=== PATIENT | male | born 1995 ===

== ENCOUNTER 2020-11-28 13:02 | Inpatient (IN) ==
[2020-11-28 13:58] LABS: ABS Lymphocytes 2.3 10^3/ul (1.0-4.8); ABS Monocytes 1.3 10^3/ul (0-0.8); ABS Neutrophils 11.9 10^3/ul (1.5-7.7); Eosinophil % 0.2 %; Hematocrit 46 % (42-52); Hemoglobin 15.7 g/dL (14.0-18.0); Lymphocyte % 14.6 %; Mean Corpuscular HGB Conc 34 g/dL (31-36); Mean Corpuscular Hemoglobin 30 pg (27-31); Mean Corpuscular Volume 88 fL (80-94); Mean Platelet Volume 7.7 fL (7.4-10.4); Platelet Count 349 10^3/uL (150-450); Red Blood Count 5.24 10^6 /uL (4.18-5.48); Red Cell Distribution Width 14 % (10-15); White Blood Count 15.5 10^3/uL (3.5-10.8)
[2020-11-28 14:14] LABS: ALT 21 U/L (7-52); AST 22 U/L (13-39); Albumin 4.7 g/dL (3.2-5.2); Albumin/Globulin Ratio 1.5 (1-3); Alkaline Phosphatase 76 U/L (35-149); Anion Gap 13 mmol/L (2-11); Blood Urea Nitrogen 9 mg/dL (6-24); CO2 Carbon Dioxide 20 mmol/L (22-32); Calcium 9.9 mg/dL (8.6-10.3); Chloride 106 mmol/L (101-111); EGFR African American 83.6 (>60); EGFR Non-African American 69.1 (>60); Globulin 3.2 g/dL (2-4); Glucose 114 mg/dL (70-100); Potassium 3.7 mmol/L (3.5-5.0); Sodium 139 mmol/L (135-145); Total Protein 7.9 g/dL (6.4-8.9)
[2020-11-28 15:00] LABS: Acetaminophen < 15 mcg/mL; Alcohol, S < 13 mg/dL (<13); Salicylate < 2.50 mg/dL (<30)
[2020-11-28 16:07] LABS: Urine Appearance Clear; Urine Bilirubin Negative (Negative); Urine Blood Negative (Negative); Urine Color Yellow; Urine Glucose Negative (Negative); Urine Ketones 1+ (Negative); Urine Nitrite Negative (Negative); Urine Protein Negative (Negative); Urine Specific Gravity 1.009 (1.002-1.030); Urine Urobilinogen Negative (Negative)
[2020-11-28 16:37] LABS: Urine Benzodiazepine Screen None Detected (None Detect); Urine Cannabinoids Screen Presumptive Positive (None Detect); Urine Opiates Screen None Detected (None Detect)
[2020-11-28 23:38] LABS: Rapid COVID-19 Molecular Undetected (Undetected)
[2020-11-28] MEDS ORDERED: Al Hydrox/Mg Hydrox/Simet LIQ 30 ML UDC PO PRN (23:49)
[2020-11-29] MEDS: Vitamin THERAPEUTIC TAB PO SCH (13:31)
[2020-11-30] MEDS: Vitamin THERAPEUTIC TAB PO SCH (11:09)
[2020-12-01 08:31] LABS: HDL Cholesterol 27.5 mg/dL
[2020-12-01] MEDS: Vitamin THERAPEUTIC TAB PO SCH (09:19)
[2020-12-02] MEDS: Vitamin THERAPEUTIC TAB PO SCH (10:09)
[2020-12-03] MEDS: Vitamin THERAPEUTIC TAB PO SCH (07:54)
[2020-12-04] MEDS: Vitamin THERAPEUTIC TAB PO SCH (10:40)
[2020-12-05] MEDS: Vitamin THERAPEUTIC TAB PO SCH (08:51)
[2020-12-06] MEDS: Vitamin THERAPEUTIC TAB PO SCH ×2 (09:58→12:15)
[2020-12-07] MEDS: Vitamin THERAPEUTIC TAB PO SCH (09:05)
[2020-12-08] MEDS: Vitamin THERAPEUTIC TAB PO SCH (11:38)
[2020-12-09] MEDS: Vitamin THERAPEUTIC TAB PO SCH (07:15)
[2020-12-10] MEDS: Vitamin THERAPEUTIC TAB PO SCH (09:56)
[2020-12-11] MEDS: Vitamin THERAPEUTIC TAB PO SCH ×2 (09:30→09:32)
[2020-12-12] MEDS: Vitamin THERAPEUTIC TAB PO SCH (08:08)
[2020-12-13] MEDS: Vitamin THERAPEUTIC TAB PO SCH (08:23)
[2020-12-14] MEDS: Vitamin THERAPEUTIC TAB PO SCH (07:45)
[2020-12-15] MEDS: Vitamin THERAPEUTIC TAB PO SCH (08:09)
[2020-12-15 12:50] VITALS: BP 134/81
[2020-12-15] MEDS ORDERED: Lithium Carbonate ER 450mg TAB PO SCH (21:00)
== END 2020-12-15 16:40 | disposition home or self-care (01) | DRG 885 ==
LOC: ED 13:02 → BSU 23:07
PROVIDERS: ADMIT Psychiatry & Neurology Psychiatry; ATTEND Psychiatry & Neurology Psychiatry

== ENCOUNTER 2021-01-11 00:26 | Inpatient (IN) ==
[2021-01-11 01:22] LABS: ABS Basophils 0.1 10^3/ul (0-0.2); ABS Eosinophils 0.2 10^3/ul (0-0.6); ABS Lymphocytes 3.5 10^3/ul (1.0-4.8); ABS Monocytes 0.8 10^3/ul (0-0.8); ABS Neutrophils 6.5 10^3/ul (1.5-7.7); Eosinophil % 1.7 %; Hematocrit 43 % (42-52); Hemoglobin 14.4 g/dL (14.0-18.0); Lymphocyte % 31.6 %; Mean Corpuscular HGB Conc 34 g/dL (31-36); Mean Corpuscular Hemoglobin 30 pg (27-31); Mean Corpuscular Volume 88 fL (80-94); Mean Platelet Volume 8.3 fL (7.4-10.4); Nucleated Red Blood Cells % 0.1; Platelet Count 296 10^3/uL (150-450); Red Blood Count 4.89 10^6 /uL (4.18-5.48); Red Cell Distribution Width 13 % (10-15); White Blood Count 11.1 10^3/uL (3.5-10.8)
[2021-01-11 01:41] LABS: Acetaminophen < 15 mcg/mL; Alcohol, S < 13 mg/dL (<13); Lithium < 0.10 mmol/L (0.6-1.2); Salicylate < 2.50 mg/dL (<30)
[2021-01-11 01:42] LABS: Urine Benzodiazepine Screen None Detected (None Detect); Urine Cannabinoids Screen Presumptive Positive (None Detect); Urine Opiates Screen None Detected (None Detect)
[2021-01-11 01:43] LABS: ALT 19 U/L (7-52); Albumin 4.4 g/dL (3.2-5.2); Albumin/Globulin Ratio 1.5 (1-3); Alkaline Phosphatase 59 U/L (35-149); Blood Urea Nitrogen 12 mg/dL (6-24); CO2 Carbon Dioxide 20 mmol/L (22-32); Calcium 9.2 mg/dL (8.6-10.3); Chloride 105 mmol/L (101-111); Globulin 2.9 g/dL (2-4); Glucose 69 mg/dL (70-100); Sodium 136 mmol/L (135-145); Total Protein 7.3 g/dL (6.4-8.9)
[2021-01-11 03:01] LABS: AST 24 U/L (13-39); Anion Gap 11 mmol/L (2-11); Potassium 3.6 mmol/L (3.5-5.0)
[2021-01-11 04:25] LABS: Urine Appearance Clear; Urine Bilirubin Negative (Negative); Urine Blood Negative (Negative); Urine Color Straw; Urine Glucose Negative (Negative); Urine Ketones Trace (Negative); Urine Nitrite Negative (Negative); Urine Protein Negative (Negative); Urine Specific Gravity 1.003 (1.002-1.030); Urine Urobilinogen Negative (Negative)
[2021-01-11] MEDS ORDERED: Al Hydrox/Mg Hydrox/Simet LIQ 30 ML UDC PO PRN (08:42)
[2021-01-11] MEDS ORDERED: OLANzapine 5 mg TAB*ODT PO PRN ×2 (08:45→16:02)
[2021-01-11 10:32] LABS: Rapid COVID-19 Molecular Undetected (Undetected)
[2021-01-11] MEDS: Vitamin THERAPEUTIC TAB PO SCH (13:46)
[2021-01-11] MEDS ORDERED: diPHENhydraMINE IV 50 MG/ML 1 ml VIAL (BENADRYL) ONE (20:19)
[2021-01-11] MEDS ORDERED: Lorazepam PYXIS KEY ONE (20:19)
[2021-01-11] MEDS ORDERED: Haloperidol 5 mg/ml SDV IV/IM 5 MG/ML AMP ONE (20:19)
[2021-01-11] MEDS ORDERED: LORazepam 2 mg VIAL 1 ml ONE (20:20)
[2021-01-11] MEDS ORDERED: LORazepam 2 mg VIAL 1 ml IM ONE (21:00)
[2021-01-11] MEDS ORDERED: Haloperidol 5 mg/ml SDV IV/IM 5 MG/ML AMP IM ONE (21:00)
[2021-01-11] MEDS ORDERED: diPHENhydraMINE IV 50 MG/ML 1 ml VIAL (BENADRYL) IM ONE (21:00)
[2021-01-11] MEDS ORDERED: Lithium Carbonate ER 450mg TAB PO SCH (21:00)
[2021-01-11] MEDS: Lithium Carbonate ER 450mg TAB PO SCH (21:05)
[2021-01-12] MEDS: Lithium Carbonate ER 450mg TAB PO SCH (08:04)
[2021-01-12] MEDS: Vitamin THERAPEUTIC TAB PO SCH (08:04)
[2021-01-13] MEDS: Vitamin THERAPEUTIC TAB PO SCH (10:52)
[2021-01-13] MEDS: Nicotine GUM 4MG FRUIT FLAVOR PO PRN ×4 (14:07→23:13)
[2021-01-14] MEDS: Nicotine GUM 4MG FRUIT FLAVOR PO PRN ×5 (07:10→20:46)
[2021-01-14] MEDS: Vitamin THERAPEUTIC TAB PO SCH (08:42)
[2021-01-15] MEDS: Nicotine GUM 4MG FRUIT FLAVOR PO PRN ×7 (04:46→23:39)
[2021-01-15] MEDS: Vitamin THERAPEUTIC TAB PO SCH (08:38)
[2021-01-16] MEDS: Nicotine GUM 4MG FRUIT FLAVOR PO PRN ×4 (07:25→18:09)
[2021-01-16] MEDS: Vitamin THERAPEUTIC TAB PO SCH (09:00)
[2021-01-17] MEDS: Vitamin THERAPEUTIC TAB PO SCH (08:58)
[2021-01-17] MEDS: Nicotine GUM 4MG FRUIT FLAVOR PO PRN ×4 (08:58→20:36)
[2021-01-18] MEDS: Nicotine GUM 4MG FRUIT FLAVOR PO PRN ×5 (07:48→23:02)
[2021-01-18] MEDS: Vitamin THERAPEUTIC TAB PO SCH (08:49)
[2021-01-19] MEDS: Nicotine GUM 4MG FRUIT FLAVOR PO PRN ×3 (08:48→21:16)
[2021-01-19] MEDS: Vitamin THERAPEUTIC TAB PO SCH (08:48)
[2021-01-20] MEDS: Vitamin THERAPEUTIC TAB PO SCH (08:38)
[2021-01-20] MEDS: Nicotine GUM 4MG FRUIT FLAVOR PO PRN ×3 (08:39→21:08)
[2021-01-21] MEDS: Nicotine GUM 4MG FRUIT FLAVOR PO PRN ×3 (08:58→21:32)
[2021-01-21] MEDS: Vitamin THERAPEUTIC TAB PO SCH (09:03)
[2021-01-22] MEDS: Benzocaine/Menthol LOZ PO PRN ×4 (00:18→23:40)
[2021-01-22] MEDS: Vitamin THERAPEUTIC TAB PO SCH (09:05)
[2021-01-22] MEDS: Nicotine GUM 4MG FRUIT FLAVOR PO PRN ×3 (09:06→20:47)
[2021-01-23] MEDS: Benzocaine/Menthol LOZ PO PRN (07:24)
[2021-01-23 08:13] VITALS: BP 97/56
[2021-01-23] MEDS: Vitamin THERAPEUTIC TAB PO SCH (08:59)
[2021-01-23] MEDS: Nicotine GUM 4MG FRUIT FLAVOR PO PRN ×2 (09:00→12:28)
== END 2021-01-23 14:07 | disposition home or self-care (01) | DRG 885 ==
LOC: ED 00:26 → BSU 13:32
PROVIDERS: ADMIT Student in an Organized Health Care Education/Training Program; ATTEND Student in an Organized Health Care Education/Training Program

== ENCOUNTER 2021-02-01 20:54 | Inpatient (IN) ==
[2021-02-01 21:37] LABS: ABS Basophils 0.1 10^3/ul (0-0.2); ABS Eosinophils 0.1 10^3/ul (0-0.6); ABS Lymphocytes 3.2 10^3/ul (1.0-4.8); ABS Neutrophils 7.8 10^3/ul (1.5-7.7); Eosinophil % 0.8 %; Hematocrit 44 % (42-52); Hemoglobin 14.9 g/dL (14.0-18.0); Lymphocyte % 26.5 %; Mean Corpuscular HGB Conc 34 g/dL (31-36); Mean Corpuscular Hemoglobin 30 pg (27-31); Mean Corpuscular Volume 89 fL (80-94); Mean Platelet Volume 8.7 fL (7.4-10.4); Platelet Count 334 10^3/uL (150-450); Red Blood Count 4.93 10^6 /uL (4.18-5.48); Red Cell Distribution Width 13 % (10-15); White Blood Count 12.1 10^3/uL (3.5-10.8)
[2021-02-01 21:54] LABS: Urine Appearance Clear; Urine Bilirubin Negative (Negative); Urine Blood Negative (Negative); Urine Color Straw; Urine Glucose Negative (Negative); Urine Ketones Negative (Negative); Urine Nitrite Negative (Negative); Urine Protein Negative (Negative); Urine Specific Gravity 1.005 (1.002-1.030); Urine Urobilinogen Negative (Negative)
[2021-02-01 22:00] LABS: ALT 15 U/L (7-52); AST 22 U/L (13-39); Acetaminophen < 15 mcg/mL; Albumin 4.6 g/dL (3.2-5.2); Albumin/Globulin Ratio 1.4 (1-3); Alcohol, S < 13 mg/dL (<13); Alkaline Phosphatase 46 U/L (35-149); Anion Gap 8 mmol/L (2-11); Blood Urea Nitrogen 13 mg/dL (6-24); CO2 Carbon Dioxide 26 mmol/L (22-32); Calcium 9.4 mg/dL (8.6-10.3); Chloride 104 mmol/L (101-111); Globulin 3.2 g/dL (2-4); Glucose 97 mg/dL (70-100); Lithium < 0.10 mmol/L (0.6-1.2); Potassium 3.5 mmol/L (3.5-5.0); Salicylate < 2.50 mg/dL (<30); Sodium 138 mmol/L (135-145); Total Protein 7.8 g/dL (6.4-8.9)
[2021-02-01 22:15] LABS: TSH Ultra Thyroid Stim Horm 2.13 mcIU/mL (0.34-5.60)
[2021-02-01 22:22] LABS: Urine Benzodiazepine Screen None Detected (None Detect); Urine Cannabinoids Screen Presumptive Positive (None Detect); Urine Opiates Screen None Detected (None Detect)
[2021-02-01] MEDS ORDERED: Nicotine GUM 4MG FRUIT FLAVOR PO ONE (23:43)
[2021-02-01] MEDS: Nicotine GUM 4MG FRUIT FLAVOR PO PRN (23:50)
[2021-02-02] MEDS: Nicotine GUM 4MG FRUIT FLAVOR PO PRN ×6 (02:07→23:18)
[2021-02-02 08:14] LABS: Rapid COVID-19 Molecular Undetected (Undetected)
[2021-02-02] MEDS ORDERED: Al Hydrox/Mg Hydrox/Simet LIQ 30 ML UDC PO PRN (08:51)
[2021-02-02] MEDS: Multivitamins/Minerals TAB PO SCH (11:45)
[2021-02-03] MEDS: Multivitamins/Minerals TAB PO SCH (07:48)
[2021-02-03 08:45] LABS: HDL Cholesterol 33.9 mg/dL
[2021-02-03] MEDS: Nicotine GUM 4MG FRUIT FLAVOR PO PRN ×3 (09:04→17:15)
[2021-02-04] MEDS: Nicotine GUM 4MG FRUIT FLAVOR PO PRN ×6 (00:02→22:19)
[2021-02-04] MEDS: Multivitamins/Minerals TAB PO SCH (08:04)
[2021-02-05] MEDS: Nicotine GUM 4MG FRUIT FLAVOR PO PRN ×6 (00:17→22:28)
[2021-02-05] MEDS: Multivitamins/Minerals TAB PO SCH (08:36)
[2021-02-06] MEDS: Nicotine GUM 4MG FRUIT FLAVOR PO PRN ×5 (06:01→21:20)
[2021-02-06] MEDS: Multivitamins/Minerals TAB PO SCH (08:52)
[2021-02-07] MEDS: Nicotine GUM 4MG FRUIT FLAVOR PO PRN ×4 (06:43→21:50)
[2021-02-07] MEDS: Multivitamins/Minerals TAB PO SCH (11:02)
[2021-02-08] MEDS: Nicotine GUM 4MG FRUIT FLAVOR PO PRN ×5 (07:18→21:56)
[2021-02-08] MEDS: Multivitamins/Minerals TAB PO SCH (10:54)
[2021-02-09] MEDS: Nicotine GUM 4MG FRUIT FLAVOR PO PRN ×5 (00:49→23:34)
[2021-02-09] MEDS: Multivitamins/Minerals TAB PO SCH (08:55)
[2021-02-10] MEDS: Nicotine GUM 4MG FRUIT FLAVOR PO PRN ×6 (02:59→20:47)
[2021-02-10] MEDS: Multivitamins/Minerals TAB PO SCH (08:47)
[2021-02-11] MEDS: Nicotine GUM 4MG FRUIT FLAVOR PO PRN ×4 (01:00→20:56)
[2021-02-11] MEDS: Multivitamins/Minerals TAB PO SCH (12:32)
[2021-02-12] MEDS: Nicotine GUM 4MG FRUIT FLAVOR PO PRN ×4 (07:39→21:37)
[2021-02-12] MEDS: Multivitamins/Minerals TAB PO SCH (09:14)
[2021-02-13] MEDS ORDERED: RISPERIDONE CONSTA 25 MG IM ONE (08:33)
[2021-02-13] MEDS: Multivitamins/Minerals TAB PO SCH (08:54)
[2021-02-13] MEDS: Nicotine GUM 4MG FRUIT FLAVOR PO PRN (08:56)
[2021-02-13 09:23] VITALS: BP 102/64
== END 2021-02-13 11:30 | disposition home or self-care (01) | DRG 885 ==
LOC: ED 20:54 → BSU 02-02 11:25
PROVIDERS: ADMIT Psychiatry & Neurology Psychiatry; ATTEND Student in an Organized Health Care Education/Training Program